=== PATIENT | male | born 1940 | race Caucasian/White ===

== ENCOUNTER 2019-04-15 06:34 | Inpatient (IN) | payer MEDICARE, OTHER ==
[~2019-04-15] VITALS: Ht 182.9 cm; Wt 138.0 kg
[2019-04-15] VITALS (8 sets, daily range): BP systolic 147–170; BP diastolic 64–80
[~2019-04-15 06:34] MED LIST: AMARYL2 MG OR; B-12 TR1000 MCG OR; BAYER LOW81 MG OR; CEPHALEXIN500 MG OR; COLESTIPOL1 GM OR; COREG6.25 MG OR; CORTISPORIN OTI10 ML AD; FOLIC ACID800 MCG OR; LASIX20 MG OR; MENTAX EX; MULTIVITAMIN OR; POTASSIMIN75 MG OR; XALATAN0.005 % OP; ZESTRIL20 MG OR; ZOCOR20 MG OR
--- NOTE | 2019-04-15 06:47 | NUR ---
PT. TO ROOM 6 WITH C/O SOB SINCE 000O THIS AM. BILATERAL LUNG CANCINO ARE DEMINISHED, O2 SAT ON RA 85%. PT. PLACED ON 3 LIT/NC.
[2019-04-15] MEDS ORDERED: MYRBETRIQ50 MG PO (06:59)
[2019-04-15] MEDS ORDERED: LIPITOR40 M1 PO (06:59)
[2019-04-15] MEDS ORDERED: CLOPIDOGREL75 MG PO (06:59)
[2019-04-15] MEDS ORDERED: METOPROL TAR25 MG PO (07:00)
[2019-04-15] MEDS ORDERED: ALL DAY10 MG PO (07:00)
[2019-04-15] MEDS ORDERED: HYDROCHLOROT25 MG PO (07:01)
[2019-04-15] MEDS ORDERED: VITAMIN C500 MG PO (07:01)
[2019-04-15] MEDS ORDERED: CIT CALCIUM200 MG PO (07:02)
[2019-04-15] MEDS ORDERED: VITAMIN D1000 UNI2 PO (07:02)
[2019-04-15 07:06] LABS: HEMATOCRIT 43.3 % (39.0-50.0); HEMOGLOBIN 14.1 g/dl (14.0-18.0); IMMATURE GRANULOCYTES 0.4 % (0.0-5.0); MEAN CELL VOLUME 89.3 fL CALC (80.0-100.0); MEAN CORPUSCULAR HGB 29.1 pG CALC (26.0-32.0); MEAN CORPUSCULAR HGB CONC 32.6 g/L CALC (32.0-36.0); NEUT# 10.8 thou/uL (1.82-7.42); RED BLOOD COUNT 4.85 mill/uL (4.70-6.10); RED CELL DISTRI WIDTH 15.1 % (11.5-15.5)
[2019-04-15] MEDS ORDERED: PREDNISONE10 MG PO (07:09)
[2019-04-15] MEDS ORDERED: GABAPENTIN300 M2 PO (07:22)
--- NOTE | 2019-04-15 07:23 | NUR ---
TOLERATING BIPAP W/O INCIDENT, MEDICATED WITH LASIX AND APRESOLINE IV ORDERED, AT BEDSIDE URIANL WITHIN REACH, WILL CONTINUE TO MONITOR.
--- NOTE | 2019-04-15 07:40 | NUR ---
400 CC LIGHT URINE OBTAINED. PT REMAINS ALERT/ORIENTED X3, AT BEDSIDE. CALL LIGHT WITHIN REACH. SITTING UP ON STRETCHER. BLOOD PRESSURE HAS DECREASED TO 178/77 BEFORE STARTING NITRO DRIP.
[2019-04-15 08:05] LABS: URINE BILIRUBIN - DIPSTICK NEGATIVE (NEGATIVE); URINE BLOOD DIPSTICK NEGATIVE (NEGATIVE); URINE COLOR YELLOW; URINE GLUCOSE - DIPSTICK NEGATIVE (NEGATIVE); URINE KETONE NEGATIVE (NEGATIVE); URINE LEUK ESTERASE NEGATIVE (NEGATIVE); URINE NITRITE - DIPSTICK NEGATIVE (Negative); URINE PH 5.5 (4.5-8.0); URINE PROTEIN - DIPSTICK NEGATIVE (NEG-TRACE); URINE SPECIFIC GRAVITY 1.015; URINE UROBILINOGEN - DIPSTICK 0.2 E.U./dL (0.2)
--- NOTE | 2019-04-15 08:11 | NUR ---
PT URINATED 250 ML CLEAR YELLOW URINE. URINALS REMAIN AT BEDSIDE
[2019-04-15 08:14] LABS: ALKALINE PHOSPHATASE 97 u/l (38-126); ANION GAP 16 (6-22 (CALC)); BUN 29 mg/dL (8-23); BUN/CREATININE RATIO 39 (12-20 (CALC)); CARBON DIOXIDE 27 mmol/l (22-30); CHLORIDE 104 mmol/l (95-108); CREATININE 0.7 mg/dL (0.7-1.3); GFR > 60 ML/MIN (>=60 (CALC)); GFR FOR AFR.AMER. > 60 ML/MIN (>=60 (CALC)); POTASSIUM 3.6 mmol/l (3.5-5.1); SGOT/AST 36 u/l (19-48); SODIUM 142 mmol/l (137-146); TOTAL PROTEIN 7.7 g/dL (6.3-8.2)
[2019-04-15 08:18] LABS: ALBUMIN 4.4 g/dL (3.2-5.0)
--- NOTE | 2019-04-15 08:22 | NUR ---
DR. CORONADO PTS OWN DOCTOR CALLED TO SPEAK WITH DR. WILLSON
[2019-04-15 08:26] LABS: MYOGLOBIN 55 ng/mL (0 - 121)
--- NOTE | 2019-04-15 08:30 | NUR ---
REMOVED IV FROM RT AC SITE WAS UNCOMFORTABLE WITH FLUSHING,NO REDNESS OR WARMTH NOTED. PT TOLERATED WELL. INITIATED A NEW IV #29 TO RT HAND WITHOUT DIFFICULTY. CARE NURSE NOTIFIED
--- NOTE | 2019-04-15 08:33 | NUR ---
NTG GTT ON HOLD FOR BRADYCARDIA.
--- NOTE | 2019-04-15 08:39 | NUR ---
400 ADDITION CC OF URINE OUTPUT TO A TOTAL OF 1200 SINCE BROUGHT TO ROOM.
--- NOTE | 2019-04-15 08:40 | NUR ---
300ML CLEAR YELLOW URINE VOIDED, BIPAP ON HOLD PLACED ON NC 2L FOR CT SCAN ORDERED.
--- NOTE | 2019-04-15 08:53 | NUR ---
PT BROUGHT BACK FROM CT. SCAN STATING HE FORGOT HE WAS ALLERGIC TO IV CONTRAST. NOTIFIED. STATES HE ISNT ALLERGIC TO IV CONTRAST IT IS WHAT THEY GIVE HIM DURING STRESS TEST BUT THEY CANT REMEMBER WHAT IT IS. DR. HIGHTOWER NOTIFIED AND STATES HIS RECORD DOES NOT SHOW THAT PT IS ALLERGIC TO IODINE
--- NOTE | 2019-04-15 09:11 | NUR ---
PT VOIDED 300 ML CLEAR YELLOW URINE, PREMEDICATED FOR CT SCAN ORDERED. CONTINUES TO TOLERATE NASAL CANNULA AT 2L WITH SATS 95% AND NO S/S OF DISTRESS.
--- NOTE | 2019-04-15 10:26 | NUR ---
VOIDED 600 ML CLEAR YELLOW URINE
--- NOTE | 2019-04-15 10:50 | NUR ---
PT RESTING QUIETLY ON STRETCHER, STATES FEELS MUCH BETTER, APPROX 2200 CC OF URINE OUTPUT AT THIS TIME.
--- NOTE | 2019-04-15 12:13 | NUR ---
REPORT GIVEN TO KATHRYN HENRY FOR CONTINUATION OF CARE.
--- NOTE | 2019-04-15 12:25 | NUR ---
REPORT GIVEN TO KATHRYN RITTER FOR CONTINUATION OF CARE. PT TAKEN TO FLOOR PER CARDIAC MONITER. PT REMAINS ALERT ORIENTED X3
--- NOTE | 2019-04-15 12:30 | NUR ---
PT ADMITTED TO ICU BED 5 FROM ED VIA STRETCHER. PT TRANSFERRED SELF TO BED. PT A&OX3, ABLE TO MAKE NEEDS KNOWN. ASSESSMENT COMPLETED, PT DENIES CHEST PAIN, SOB OR DISTRESS AT THIS TIME. PT CONTINUES ON 02@2LPM VIA NC, EXERTIONAL SOB. PT ORIENTED TOUNIT, ROOM AND CALL LIGHT SYSTEM. BED IN LOWEST POSITION, CALL LIGHT IN REACH. WILL MONITOR.
--- NOTE | 2019-04-15 13:00 | NUR ---
DR. STALLINGS AT BEDSIDE FOR ASSESSMENT AND TO DISCUSS PLAN OF CARE.
--- NOTE | 2019-04-15 13:35 | NUR ---
PT REMAINS AT BEDSIDE. PT RESTING IN BED WATCHING TV.
--- NOTE | 2019-04-15 14:11 | NUR ---
FAMILY FRIEND AT THE BEDSIDE
--- NOTE | 2019-04-15 15:30 | NUR ---
DIETARY ON UNIT, DINNER TRAY SET UP.
--- NOTE | 2019-04-15 16:25 | NUR ---
LEAVING FOR THE NIGHT, LEFT CELL TO CALL WITH ANY CONCERNS. MARIA EUGENIA CELL # [phone].
--- NOTE | 2019-04-15 17:30 | NUR ---
DIETARY ON UNIT, DINNER TRAY SET UP.
--- NOTE | 2019-04-15 18:24 | NUR ---
PT RESTING IN BED WATCHING TV. DENIES CHEST PAIN, SOB OR DISTRESS AT THIS TIME. CALL LIGHT IN REACH. WILL MONITOR.
--- NOTE | 2019-04-15 19:00 | NUR ---
BEDSIDE REPORT RECEIVED FROM STONE PERALTA. INTERTYPE OPERATOR AT BEDSIDE.
--- NOTE | 2019-04-15 19:48 | NUR ---
PT SITTING UP IN BED SEMI FOWLERS WATCHING TV; ALERT AND ORIENTED. DENIES PAIN CURRENTLY. RESPIRATIONS EVEN AND UNLABORED ON OXYGEN 2L VIA NC. PT REPORTS ONLY USING CPAP AT HS AT HOME. LUNGS CLEAR WITH NO EDEMA NOTED TO BLE. PLAN OF CARE DISCUSSED. PT ENCOURAGED TO VERBALIZE CONCERNS, REQUESTS COFFEE. STATES UNDERSTANDING. SAFETY MEASURES IN PLACE. CALL LIGHT WITHIN REACH.
--- NOTE | 2019-04-15 20:21 | NUR ---
PT STATES THAT HE DOES NOT REMEMBER TAKING GABAPENTIN AT HOME; DECLINES HS DOSE AND WILL CLARIFY WITH TOMORROW.
--- NOTE | 2019-04-15 23:09 | NUR ---
PT ASLEEP AT THIS TIME WITH NO SIGNS OF DISTRESS. PT REMOVED OXYGEN; RESPIRATIONS EVEN AND UNLABORED ON ROOM AIR; OXYGEN SATURATION 93-95%; WILL CONTINUE TO MONITOR. IV SITES APPEAR HEALTHY AND FLUSH.
[2019-04-16] VITALS (11 sets, daily range): BP systolic 108–169; BP diastolic 38–90
--- NOTE | 2019-04-16 00:14 | NUR ---
PT REAPPLIED OXYGEN. AFEBRILE.
--- NOTE | 2019-04-16 02:22 | NUR ---
NO ACUTE CHANGES IN CONDITION THROUGHOUT THE NIGHT. USING BEDSIDE URINAL TO VOID.
--- NOTE | 2019-04-16 04:17 | NUR ---
LAB AT BEDSIDE. NO REQUESTS OR CONCERNS AT THIS TIME.
[2019-04-16 05:15] LABS: HEMATOCRIT 39.1 % (39.0-50.0); HEMOGLOBIN 12.7 g/dl (14.0-18.0); IMMATURE GRANULOCYTES 0.7 % (0.0-5.0); MEAN CELL VOLUME 88.5 fL CALC (80.0-100.0); MEAN CORPUSCULAR HGB 28.7 pG CALC (26.0-32.0); MEAN CORPUSCULAR HGB CONC 32.5 g/L CALC (32.0-36.0); NEUT# 9.38 thou/uL (1.82-7.42); RED BLOOD COUNT 4.42 mill/uL (4.70-6.10); RED CELL DISTRI WIDTH 14.4 % (11.5-15.5)
[2019-04-16 05:28] LABS: ANION GAP 16 (6-22 (CALC)); BUN 31 mg/dL (8-23); BUN/CREATININE RATIO 45 (12-20 (CALC)); CARBON DIOXIDE 29 mmol/l (22-30); CHLORIDE 97 mmol/l (95-108); CREATININE 0.7 mg/dL (0.7-1.3); GFR > 60 ML/MIN (>=60 (CALC)); GFR FOR AFR.AMER. > 60 ML/MIN (>=60 (CALC)); POTASSIUM 3.7 mmol/l (3.5-5.1); SODIUM 138 mmol/l (137-146)
--- NOTE | 2019-04-16 06:21 | NUR ---
DAILY WEIGHT OBTAINED ON BED SCALE 304.5LB; DOCUMENTED INCREASE IN WEIGHT. TOTAL OUTPUT OF 275ML URINE THROUGHOUT THE NIGHT. PT SLEPT ALL NIGHT WITH NO DISTRESS OR NEEDS; AWAKENS TO VERBAL STIMULI. SAFETY MEASURES IN PLACE. CALL LIGHT WITHIN REACH.
--- NOTE | 2019-04-16 07:00 | NUR ---
PT RESTING IN BED AWAKE AND WATCHING TV. PT IS ALERT AND ORIENTED X3. SHIFT ASSESSMENT COMPLETED AT THIS TIME. IV PATENT X2. CALL LIGHT IN REACH. WILL CONTINUE TO MONITOR.
--- NOTE | 2019-04-16 07:30 | NUR ---
PT SET UP FOR AM MEAL
--- NOTE | 2019-04-16 10:00 | NUR ---
PT SITTING UP IN BED VISITNG WITH VISITOR. RESP ARE EVEN AND UNLABORED. NO DISTRESS NOTED. CALL LIGHT IN REACH. WILL CONTINUE TO MONITOR.
--- NOTE | 2019-04-16 11:30 | NUR ---
PT SET UP FOR NOON MEAL
--- NOTE | 2019-04-16 11:45 | NUR ---
DR CURRY AT BEDSIDE TO DISCUSS PLAN OF CARE WITH PATIENT AND SPOUSE
--- NOTE | 2019-04-16 13:45 | NUR ---
PT ASSISTED UP TO CHAIR TO BATHE. LINENS CHANGED. CALL LIGHT IN REACH. WILL CONTINUE TO MONITOR.
--- NOTE | 2019-04-16 15:30 | NUR ---
PT ASSISTED BACK TO BED PER PATIENT REQUEST. PT TOLERATED TRANSFER WELL. CALL LIGHT IN REACH. WILL CONTINUE TO MONITOR.
--- NOTE | 2019-04-16 17:37 | NUR ---
PT SET UP FOR PM MEAL
--- NOTE | 2019-04-16 19:30 | NUR ---
awake. denies distress. o2 cont per nc. quality assurance monitor shows sinus rhythm 1st degree avb pvcs. #20 rt hand & #20 lac saline locks. fluids restriction cont. voids per urinal. amb with walker to br per request for bm then to chair. femi well. fall & contact precautions cont.
--- NOTE | 2019-04-16 21:30 | NUR ---
assisted to bed. femi well.
--- NOTE | 2019-04-16 23:30 | NUR ---
home cpap on per self.
[2019-04-17 00:30] VITALS: BP 167/78
--- NOTE | 2019-04-17 01:00 | NUR ---
awakens easily. voided per urinal. denies distress.
--- NOTE | 2019-04-17 02:00 | NUR ---
resting quietly. resps even & unlabored. no apparent distress.
[2019-04-17 02:30] VITALS: BP 138/55
--- NOTE | 2019-04-17 04:00 | NUR ---
eyes closed. no distress. quality assurance monitor final shows sinus pritesh 1st degree avb pvcs.
[2019-04-17 04:58] LABS: HEMATOCRIT 41.1 % (39.0-50.0); HEMOGLOBIN 13.5 g/dl (14.0-18.0); IMMATURE GRANULOCYTES 0.5 % (0.0-5.0); MEAN CELL VOLUME 88.4 fL CALC (80.0-100.0); MEAN CORPUSCULAR HGB CONC 32.8 g/L CALC (32.0-36.0); NEUT# 6.37 thou/uL (1.82-7.42); RED BLOOD COUNT 4.65 mill/uL (4.70-6.10); RED CELL DISTRI WIDTH 14.6 % (11.5-15.5)
--- NOTE | 2019-04-17 05:00 | NUR ---
lab here. blood drawn.
[2019-04-17 05:20] LABS: ALBUMIN 3.6 g/dL (3.2-5.0); ALKALINE PHOSPHATASE 78 u/l (38-126); AMYLASE 30 u/l (30-110); ANION GAP 13 (6-22 (CALC)); BILIRUBIN, TOTAL 1.2 mg/dL (0.0-1.4); BUN 28 mg/dL (8-23); BUN/CREATININE RATIO 39 (12-20 (CALC)); CARBON DIOXIDE 32 mmol/l (22-30); CHLORIDE 98 mmol/l (95-108); CREATININE 0.7 mg/dL (0.7-1.3); GFR > 60 ML/MIN (>=60 (CALC)); GFR FOR AFR.AMER. > 60 ML/MIN (>=60 (CALC)); LIPASE 78 u/l (23-300); MAGNESIUM 1.7 mg/dL (1.6-2.3); POTASSIUM 3.2 mmol/l (3.5-5.1); SGOT/AST 23 u/l (19-48); SODIUM 139 mmol/l (137-146); TOTAL PROTEIN 6.5 g/dL (6.3-8.2)
[2019-04-17 07:00] VITALS: BP 153/76
--- NOTE | 2019-04-17 07:00 | NUR ---
PT RESTING IN BED AWAKE. PT ASISSTED TO STAND UP SCALE. WEIGHT 299LBS. PT THEN ASSISTED TO SIT UP IN CHAIR. PT IS ALERT AND ORIENTED X3. SHIFT ASSESSMENT COMPLETED AT THIS TIME. IV PATENT X2. CALL LIGHT IN REACH. WILL CONTINUE TO MONITOR.
--- NOTE | 2019-04-17 07:40 | NUR ---
PT SET UP FOR AM MEAL
[2019-04-17 09:00] VITALS: BP 133/61
--- NOTE | 2019-04-17 09:12 | NUR ---
PT SET UP TO COMPLETE AM CARE.
--- NOTE | 2019-04-17 10:27 | NUR ---
PT SITTING UP IN RECLINER AT BEDSIDE WATCHING TV. RESP ARE EVEN AND UNLABORED NO DISTRESS NOTED. CALL LIGHT IN REACH. WILL CONTINUE TO MONITOR.
--- NOTE | 2019-04-17 10:50 | NUR ---
DR CURRY AT BEDSIDE TO DISCUSS PLAN OF CARE
[2019-04-17 11:00] VITALS: BP 134/62
[2019-04-17] MEDS ORDERED: BUMETANIDE1 MG PO (11:16)
[2019-04-17] MEDS ORDERED: DOXYCYC MONO100 M3 PO (11:17)
--- NOTE | 2019-04-17 11:30 | NUR ---
PT SET UP FOR NOON MEAL
--- NOTE | 2019-04-17 12:00 | NUR ---
IV site discontinued X2, cath intact. No edema , no redness, voices no discomfort.
--- NOTE | 2019-04-17 12:00 | NUR ---
DC INSTRUCTIONS REVIEWED WITH PATIENT. PATIENT EDUCATION PROVIED. PT VERBALIZED UNDERSTANDING.
--- NOTE | 2019-04-17 13:18 | NUR ---
Discharge instructions given. Patient verbalizes understanding of same. Discharged in stable condition via Wheelchair to Home with family. All belongings sent with pt.
== END 2019-04-17 13:20 | disposition home or self-care (01) | DRG 291 ==
LOC: ED 06:34 → ED-I 07:18 → ED 10:52 → ICU 10:53
PROVIDERS: Emergency Medicine; Internal Medicine Nephrology; ADMIT Internal Medicine; ATTEND Internal Medicine
PROC: 5A09357 Assistance with Respiratory Ventilation, Less than 24 Consecutive Hours, Continuous Positive Airway Pressure (ICD-10-PCS; principal; 2019-04-15)
DX: I11.0 Hypertensive heart disease with heart failure (principal); I50.31 Acute diastolic (congestive) heart failure; J96.00 Acute respiratory failure, unspecified whether with hypoxia or hypercapnia; Z68.41 Body mass index [BMI] 40.0-44.9, adult; I25.10 Atherosclerotic heart disease of native coronary artery without angina pectoris; E66.01 Morbid (severe) obesity due to excess calories; E78.5 Hyperlipidemia, unspecified; J44.9 Chronic obstructive pulmonary disease, unspecified; M54.5 Low back pain; G47.33 Obstructive sleep apnea (adult) (pediatric); Z88.0 Allergy status to penicillin; Z88.1 Allergy status to other antibiotic agents; Z95.5 Presence of coronary angioplasty implant and graft; Z96.653 Presence of artificial knee joint, bilateral; Z79.52 Long term (current) use of systemic steroids
CPT/HCPCS: Q9967; S0073

== ENCOUNTER 2021-02-23 10:17 | Emergency (ER) | payer MEDICARE, OTHER ==
[~2021-02-23 10:17] MED LIST changes: +ALL DAY10 MG PO; +BUMETANIDE1 MG PO; +CIT CALCIUM200 MG PO; +CLOPIDOGREL75 MG PO; +DOXYCYC MONO100 M3 PO; +GABAPENTIN300 M2 PO; +HYDROCHLOROT25 MG PO; +LIPITOR40 M1 PO; +METOPROL TAR25 MG PO; +MYRBETRIQ50 MG PO; +PREDNISONE10 MG PO; +VITAMIN C500 MG PO; +VITAMIN D1000 UNI2 PO
[2021-02-23] MEDS ORDERED: PERCOCET 5/321 COMBO PO (16:58)
[2021-02-23 17:02] VITALS: BP 182/81
== END 2021-02-23 17:09 | disposition home or self-care (01) ==
LOC: ED 10:17
DX: M54.5 Low back pain (principal); I10 Essential (primary) hypertension; W18.39XA Other fall on same level, initial encounter; Y92.002 Bathroom of unspecified non-institutional (private) residence as the place of occurrence of the external cause; Z86.711 Personal history of pulmonary embolism

== ENCOUNTER 2022-09-03 11:04 | Inpatient (IN) | payer MEDICARE, OTHER ==
[~2022-09-03] VITALS: Ht 182.9 cm; Wt 117.2 kg
[2022-09-03] VITALS (20 sets, daily range): BP systolic 96–169; BP diastolic 39–101
[~2022-09-03 11:04] MED LIST changes: +PERCOCET 5/321 COMBO PO
--- NOTE | 2022-09-03 11:05 | NUR ---
PT TO ROOM VIA EMS
[2022-09-03] MEDS ORDERED: XALATAN0.005 % OU (11:28)
[2022-09-03] MEDS ORDERED: ELIQUIS5 MG PO (11:29)
[2022-09-03] MEDS ORDERED: FUROSEMIDE20 MG PO (11:29)
[2022-09-03] MEDS ORDERED: SPIRONOLACT25 MG PO (11:30)
[2022-09-03] MEDS ORDERED: SUPER B COMP PO (11:34)
[2022-09-03] MEDS ORDERED: K-TAB20 MEQ PO (11:34)
[2022-09-03] MEDS ORDERED: GLIPIZIDE ER2.5 MG PO (11:34)
[2022-09-03] MEDS ORDERED: MAG-AL PLU1 PO (11:35)
[2022-09-03 14:42] LABS: HEMOGLOBIN 12.3 g/dl (14.0-18.0); IMMATURE GRANULOCYTES 0.3 % (0.0-5.0); MEAN CELL VOLUME 91.1 fL CALC (80.0-100.0); MEAN CORPUSCULAR HGB 28.7 pG CALC (26.0-32.0); MEAN CORPUSCULAR HGB CONC 31.5 g/dL CAL (32.0-36.0); NEUT# 12.62 thou/uL (1.82-7.42); RED BLOOD COUNT 4.28 mill/uL (4.70-6.10); RED CELL DISTRI WIDTH 15.1 % (11.5-15.5)
[2022-09-03 14:55] LABS: BILIRUBIN, TOTAL 1.1 mg/dL (0.0-1.4); CREATININE 1.5 mg/dL (0.7-1.3); POTASSIUM 4.6 mmol/l (3.5-5.1); TOTAL PROTEIN 8.3 g/dL (6.3-8.2)
[2022-09-03 15:29] LABS: URINE BILIRUBIN - DIPSTICK NEGATIVE (NEGATIVE); URINE BLOOD DIPSTICK SMALL (NEGATIVE); URINE COLOR YELLOW; URINE GLUCOSE - DIPSTICK NEGATIVE (NEGATIVE); URINE KETONE TRACE mg/dL (NEGATIVE); URINE LEUK ESTERASE TRACE (NEGATIVE); URINE PH 5.5 (4.5-8.0); URINE PROTEIN - DIPSTICK TRACE mg/dL (NEG-TRACE); URINE UROBILINOGEN - DIPSTICK 0.2 E.U./dL (0.2)
[2022-09-03 15:31] LABS: URINE NITRITE - DIPSTICK NEGATIVE (Negative)
--- NOTE | 2022-09-03 15:32 | NUR ---
PPT RESTING WITH EYES CLOSED, AT THE BS, DENIES ANY NEEDS
[2022-09-03 15:38] LABS: URINE SQUAMOUS EPITHELIAL CELL FEW EPI/hpf (0-FEW)
[2022-09-03] MEDS ORDERED: TOPROL XL100 MG PO (16:54)
[2022-09-03] MEDS ORDERED: GLIPIZIDE ER5 MG PO (16:55)
[2022-09-03] MEDS ORDERED: GLIPIZIDE5 M2 PO (16:56)
[2022-09-03] MEDS ORDERED: METOLAZONE2.5 MG PO (16:56)
--- NOTE | 2022-09-03 17:49 | NUR ---
REPORT TO RACHEL RITTER, CARE TRANSFERED AT THIS TIME
--- NOTE | 2022-09-03 18:13 | NUR ---
RECIEVED FROM ER TO ROOM 262. 4 PERSON ASSIST TO TRANSFER PT FROM STRETCHER TO BED. C/O PAIN TO BACK AWAITING PHARMACY AUTHVERIFY TO BE ABLE TO PROVIDE MEDS.
--- NOTE | 2022-09-03 20:00 | NUR ---
Patient A+Ox3 and plesant, Pt. complains of pain 8 out of 10, was medicated for pain. Skin is dry and intact. Abdomin distended. Hx. of chf. Vital signs are WNL, is on o2 2liters. On tele and heart rate is sinus tac at times
[2022-09-04] VITALS (8 sets, daily range): BP systolic 96–139; BP diastolic 39–72
--- NOTE | 2022-09-04 | NUR ---
Patient is A+Ox3. Resting in bed. Assisted patient with using urinal. Patient refused to be repositioned. Patient complained of servere back pain. Patient was concerned about lasics. Advised patient that lasics is due 0900.
--- NOTE | 2022-09-04 02:25 | NUR ---
PATIENT HAD ARRIVED FROM ED WITH MEDS THAT WERE GIVEN BUT NOT SCANNED AND DOCUMENTED. VERIFIED THE MEDICATIONS TO TAKE THEM OFF THE MAR. THEY WERE PULLED AND ADMINISTERED.
--- NOTE | 2022-09-04 03:59 | NUR ---
Patient comfortable at the moment. No complaints of pain. Vitals are stable.
[2022-09-04 06:36] LABS: HEMOGLOBIN 12.1 g/dl (14.0-18.0); MEAN CELL VOLUME 91.3 fL CALC (80.0-100.0); MEAN CORPUSCULAR HGB 29.1 pG CALC (26.0-32.0); MEAN CORPUSCULAR HGB CONC 31.8 g/dL CAL (32.0-36.0); RED BLOOD COUNT 4.16 mill/uL (4.70-6.10)
[2022-09-04 06:48] LABS: BILIRUBIN, TOTAL 0.8 mg/dL (0.0-1.4); CREATININE 1.6 mg/dL (0.7-1.3); POTASSIUM 4.8 mmol/l (3.5-5.1); TOTAL PROTEIN 7.8 g/dL (6.3-8.2)
--- NOTE | 2022-09-04 07:22 | NUR ---
PT RESTING IN LOW FOWLERS POSITION. ASSESSMENT AND VS COMPLETED. PT HEART RHYTHM ON TELE. RESPIRATIONS UNLABORED. IV SITE TO 20 LAC.ALL SAFETY PRECAUTIONS IN PLACE.
--- NOTE | 2022-09-04 12:12 | NUR ---
PT RESTING IN LOW FOWLERS POSITION . STATES PAIN COMES AND GOES. WILL TRY TO TIRATE PTS OXYGEN DOWN 1L.
--- NOTE | 2022-09-04 15:55 | NUR ---
ATTEMPTED FOR NEW IV SITE UNABLE TO OBTAINED. SECOND NURSE TO TRY FOR IV IF POSSIBLE.
--- NOTE | 2022-09-04 20:30 | NUR ---
PT IN BED RESTING IN BED WATCHING TV. AT BED SIDE. PT REPORTS PAIN TO LOWER BACK, PT NEDICATED PER MAR. PT HAS A IV 22 TO LAC PATENT AND FLUSHES WELL. PT ON TELE, HX OF AFIB. ASSESMENT COMPLETED AT THIS TIME. CALL LIGHT IN REACH AND BED IN LOWEST POSITION.
[2022-09-05] VITALS (7 sets, daily range): BP systolic 132–168; BP diastolic 67–86
--- NOTE | 2022-09-05 00:50 | NUR ---
PT IN BED AWAKE, PT REPORT PAIN TO LOWER BACK AND MEDICATED PER MAR. NO OTHER NEEDS OR CONCERNS VOICE. CALL LIGHT IN REACH AND BED IN LOWEST POSITION.
[2022-09-05 05:22] LABS: HEMATOCRIT 40.8 % (39.0-50.0); MEAN CELL VOLUME 91.7 fL CALC (80.0-100.0); MEAN CORPUSCULAR HGB 29.2 pG CALC (26.0-32.0); MEAN CORPUSCULAR HGB CONC 31.9 g/dL CAL (32.0-36.0); RED BLOOD COUNT 4.45 mill/uL (4.70-6.10)
[2022-09-05 05:34] LABS: CREATININE 1.4 mg/dL (0.7-1.3); POTASSIUM 4.9 mmol/l (3.5-5.1)
[2022-09-05 05:39] LABS: MAGNESIUM 2.4 mg/dL (1.6-2.3)
--- NOTE | 2022-09-05 07:50 | NUR ---
PT IN BED AWAKE RESTING, NO S/S OF DISTRESS NOTED. PT REPORT PAIN TO LOWER BACK, PT MEDICATED PER MAR. NO OTHER CORNCERN OR NEEDS VOICED. CALL LIGHT IN REACH AND BED IN LOWEST POSTION.
--- NOTE | 2022-09-05 08:10 | NUR ---
PT RESTING IN LOW FOWLERS POSITION PT A/OX3 ASSESSMENT COMPLETED. VS COMPLETED. HEART RHYTHM ON TELE . BOWEL SOUNDS ACTIVE PT REPORT PT AGREED TO TAKE MIRALAX FOR BM. IV SITE NOTED TO JHONNY JENSEN. S.L PT DENIES ADDITIONAL NEEDS OTHER THAN MILK FOR COFFEE. PROVIDED.
--- NOTE | 2022-09-05 12:42 | NUR ---
PT DRESSING TO BE CHANGED.
--- NOTE | 2022-09-05 15:56 | NUR ---
PT TOLERATING PAIN WELL. PT DRESSING CHANGED TODAY. PT DENIES BM AT THE TIME ALL SAFETY PRECAUTIONS IN PLACE.
--- NOTE | 2022-09-05 20:20 | NUR ---
PT IN BED RESTING BREATHING EVEN AND UNLABORED. PT REPORT PAIN TO BACK AND SHOULDER. PT MEDICATED PER JAN. ASSESSMENT COMPLETED CALL LIGHT IN REACH AND BED IN LOWEST POSITION
--- NOTE | 2022-09-05 21:10 | NUR ---
PT RESQUEST TO INCREASE PAIN MEDICATION MORPHINE PT STATES IS A BABY DOSE. DR BAEZFIED OF PT REQUEST. DR ORDER TO CONTINUE WITH SAME DOSE, I EDUCATE PT ON CURREENT ORDER DOSES AND POSSIBLE SIDE EFFECT OF INCREASSING PAIN MEDICATION DOSE. PT START STATED THAT HE IS GOING TO DUE TO THE PAIN AND CALL . WHEN ARRIVE TO UNIT ME AND PROFESSIONAL APPLICATION DESIGNER EDUCATED PT AND ON POSSIBLE OUTCOMES OF INCREASING PAIN NEDICATION. STATES UNDERTANDING AND REQUEST TO STAY TO CALM PT. PT MEDICATED PER MAR ORDER.
[2022-09-06] VITALS (7 sets, daily range): BP systolic 115–163; BP diastolic 70–88
--- NOTE | 2022-09-06 00:50 | NUR ---
PT IN BED RESTING PT REPORT PAIN TO LOWER BACK AND SHOULDER. PT MEDICATED PER MAR. AT BED SIDE. NO OTHER CONCERN OR NEEDS VOICED. CALL LIGHT IN REACH AND BED IN LOWEST POSITION.
--- NOTE | 2022-09-06 04:45 | NUR ---
PT IN BED RESTING WITH EYES CLOSED BREATHING EVEN AND UNLABORED CALL LIGHT IN REACH AND BED IN LOWEST POSITION AT BED SIDE.
[2022-09-06 04:58] LABS: HEMATOCRIT 42.9 % (39.0-50.0); HEMOGLOBIN 13.4 g/dl (14.0-18.0); MEAN CELL VOLUME 91.7 fL CALC (80.0-100.0); MEAN CORPUSCULAR HGB 28.6 pG CALC (26.0-32.0); MEAN CORPUSCULAR HGB CONC 31.2 g/dL CAL (32.0-36.0); RED BLOOD COUNT 4.68 mill/uL (4.70-6.10); RED CELL DISTRI WIDTH 14.7 % (11.5-15.5)
[2022-09-06 05:15] LABS: BUN 46 mg/dL (8-23); BUN/CREATININE RATIO 38 (12-20 (CALC)); CHLORIDE 96 mmol/l (95-108); CREATININE 1.2 mg/dL (0.7-1.3); GFR FOR AFR.AMER. > 60 ML/MIN (>=60 (CALC)); GFR OTHER RACES 58 ML/MIN (>=60 (CALC)); MAGNESIUM 2.4 mg/dL (1.6-2.3); SODIUM 136 mmol/l (137-146)
[2022-09-06 05:22] LABS: ANION GAP 14 (6-22 (CALC)); CARBON DIOXIDE 32 mmol/l (22-30); POTASSIUM 5.6 mmol/l (3.5-5.1)
--- NOTE | 2022-09-06 08:30 | NUR ---
PT IS RESTING IN BED, SPOUSE AT BEDSIDE. PT HAS 2/10 C/O PAIN TO PELVIC REGION. PT IS A&OX3. PT IS ON RA, BUT HAS NC AT HOB. PT STATES HE DOESN'T WEAR IT AT HOME. PT O2 SATS 95%. VSS. PT HAS BEEN ASSESSED, AND MEDICATED. PT IS ON FALL PRECAUTIONS AND CALL LIGHT NEAR AND IS ABLE TO MAKE NEEDS KNOWN. WILL CONTINUE TO MONITOR.
--- NOTE | 2022-09-06 12:30 | NUR ---
PT HAS BEEN SEEN BY PT, PT REFUSED TO STAND AND GET OOB. PT ALSO REFUSED FOR LINENS TO BE CHANGED. PT HAS CALL LIGHT NEAR
--- NOTE | 2022-09-06 17:50 | NUR ---
PT HAS BEEN ASSISTED WITH MEAL, PT HAS QUESTIONS REGARDING AT HOME MEDICATION, ADVISED PT WILL SPEAK TO PHYS. PT HAS CALL LIGHT NEAR AND WILL CONTINUE TO MONITOR.
--- NOTE | 2022-09-06 20:59 | NUR ---
PT LYING ON BED: A&O X3. PT'S AT BEDSIDE. EVEN AND UNLABORED RESPIRATIONS ON ADRYAN. TELEMETRY IN PLACE. IV SITE HEALTHY AND PATENT. ACTIVE BOWEL SOUNDS X4 QUADRANTS. BOUDREAUXS BUTT PASTE APPLIED TO GROIN AND BUTTOCKS. PT C/O LOWER BACK PAIN LEVEL 7/10; ADMINISTERED PAIN MED PER EMAR. PT ASSISTED WITH THE USE OF URINAL 575 CC OF CLEAR, YELLOW URINE. SAFETY PRECAUTIONS IN PLACE WITH CALL LIGHT IN REACH.
[2022-09-07 00:07] VITALS: BP 128/74
--- NOTE | 2022-09-07 01:35 | NUR ---
PT C/O LOWER BACK PAIN, LEVEL 7/10; ADMINISTERED PAIN MED PER EMAR. SAFETY PRECAUTIONS IN PLACE WITH CALL LIGHT IN REACH.
--- NOTE | 2022-09-07 04:04 | NUR ---
pt c/o lower back pain, level 8/10; administered pain med per emar. safety precautions in place with call light in reach.
[2022-09-07 04:41] VITALS: BP 125/79
[2022-09-07 05:24] LABS: HEMATOCRIT 38.8 % (39.0-50.0); HEMOGLOBIN 12.3 g/dl (14.0-18.0); MEAN CELL VOLUME 91.5 fL CALC (80.0-100.0); MEAN CORPUSCULAR HGB CONC 31.7 g/dL CAL (32.0-36.0); RED BLOOD COUNT 4.24 mill/uL (4.70-6.10); RED CELL DISTRI WIDTH 14.9 % (11.5-15.5)
[2022-09-07 05:54] LABS: BUN 49 mg/dL (8-23); BUN/CREATININE RATIO 49 (12-20 (CALC)); CARBON DIOXIDE 29 mmol/l (22-30); CHLORIDE 97 mmol/l (95-108); GFR FOR AFR.AMER. > 60 ML/MIN (>=60 (CALC)); GFR OTHER RACES > 60 ML/MIN (>=60 (CALC)); MAGNESIUM 2.1 mg/dL (1.6-2.3); SODIUM 134 mmol/l (137-146)
[2022-09-07 05:57] LABS: ANION GAP 12 (6-22 (CALC)); POTASSIUM 4.4 mmol/l (3.5-5.1)
[2022-09-07 06:23] VITALS: BP 120/68
[2022-09-07 07:45] VITALS: BP 138/92
--- NOTE | 2022-09-07 07:45 | NUR ---
PT IS AWAKE, A&OX3. PT FOLLOWS COMMANDS APPROPRIATELY, AND IS WEAK TO BLE PT HAS PAIN AND WILL MEDICATE. PT IS ABLE TO MAKE NEEDS KNOWN, PT VSS, PT HAS BEEN SEEN BY CM AND EXPLAINED OF POC. PT UNDERSTANDS. PT HAS BEEN PLACED ON FALL PRECAUTIONS AND HAS CALL LIGHT NEAR AND WILL CONTINUE TO MONITOR.
--- NOTE | 2022-09-07 09:20 | NUR ---
PT HAS BEEN SEEN BY PT, AND IS NOW SITTING UP OOB TO CHAIR. PT STATES HE HAS VERY LITTLE PAIN, PT HAS CALL LIGHT NEAR WILL CONTINUE TO MONITOR.
[2022-09-07 10:00] VITALS: BP 123/78
[2022-09-07] MEDS ORDERED: LORTAB 1010 MG PO (11:38)
--- NOTE | 2022-09-07 12:55 | NUR ---
PT SITTING ON BSC, PT HAS LARGE BM. WILL NOTIFY CM. PT HAS BEEN PLACED BACK INTO CHAIR. PT HAS CALL LIGHT NEAR.
== END 2022-09-07 15:35 | DRG 536 ==
LOC: ED 11:04 → ED-I 16:26 → ED 16:57 → MS2 16:57
PROVIDERS: Family Medicine; ADMIT Internal Medicine; ATTEND Internal Medicine
DX: S32.591A Other specified fracture of right pubis, initial encounter for closed fracture (principal); N39.0 Urinary tract infection, site not specified; I11.0 Hypertensive heart disease with heart failure; I50.9 Heart failure, unspecified; I48.91 Unspecified atrial fibrillation; M19.90 Unspecified osteoarthritis, unspecified site; I25.10 Atherosclerotic heart disease of native coronary artery without angina pectoris; J44.9 Chronic obstructive pulmonary disease, unspecified; G47.33 Obstructive sleep apnea (adult) (pediatric); R21 Rash and other nonspecific skin eruption; W01.0XXA Fall on same level from slipping, tripping and stumbling without subsequent striking against object, initial encounter; Y93.89 Activity, other specified; Y92.008 Other place in unspecified non-institutional (private) residence as the place of occurrence of the external cause; Z86.711 Personal history of pulmonary embolism; Z79.01 Long term (current) use of anticoagulants; Z95.5 Presence of coronary angioplasty implant and graft; Z96.653 Presence of artificial knee joint, bilateral; Z96.641 Presence of right artificial hip joint; Z96.611 Presence of right artificial shoulder joint; Z20.822 Contact with and (suspected) exposure to COVID-19; K59.00 Constipation, unspecified
CPT/HCPCS: G0378